=== PATIENT | female | born 1995 | race Caucasian/White ===

== ENCOUNTER 2016-04-30 18:49 | Emergency (ER) | payer OTHER ==
[~2016-04-30] VITALS: Ht 175.3 cm; Wt 93.0 kg
[2016-04-30 19:00] VITALS: BP 147/65; PULSE 100; RESP 18; TEMP 98; O2SAT 99
[2016-04-30 22:55] VITALS: BP 124/76; PULSE 80; RESP 18; TEMP 98.3; O2SAT 99
[2016-05-03 03:13] LABS: CHLAMYDIA TRACHOMATIS NAA Negative (Negative); NEISSERIA GONORRHOEAE NAA Negative (Negative)
== END 2016-04-30 22:55 | disposition home or self-care (01) ==
LOC: SED 18:49
DX: T74.21XA Adult sexual abuse, confirmed, initial encounter (principal); Y07.03 Male partner, perpetrator of maltreatment and neglect
CPT/HCPCS: 87491; 87591; 99284